=== PATIENT | female | born 2000 | race Two or more races ===

== ENCOUNTER 2024-01-10 09:30 | Emergency (ER) | payer OTHER ==
[~2024-01-10] VITALS: Ht 162.6 cm; Wt 71.7 kg
[2024-01-10 11:13] LABS: HEMATOCRIT 32.8 % (36.0-45.00); HEMOGLOBIN 10.6 g/dL (12.0-15.00); MEAN CELL VOLUME 72.3 fL (80.00-100.00); MEAN CORPUSCULAR HEMOGLOBIN 23.2 pg (27.00-32.0); MEAN CORPUSCULAR HGB CONC 32.1 g/dl (32.0-36.0); PLATELET COUNT 257 K/uL (150-450); RED BLOOD COUNT 4.54 M/uL (4.00-6.00); RED CELL DISTRIBUTION WIDTH 21.7 % (11.5-14.5)
[2024-01-10] MEDS ORDERED: ACETAMINOPHEN 500 MG GEL..CAP PO STA (11:43)
[2024-01-10] MEDS ORDERED: ACETAMINOPHEN 500 MG GEL..CAP PO ONE (11:47)
== END 2024-01-10 11:42 | disposition home or self-care (01) ==
LOC: ER 09:31
PROVIDERS: General Practice
DX: B34.9 Viral infection, unspecified (principal); R53.81 Other malaise; Z20.822 Contact with and (suspected) exposure to COVID-19